=== PATIENT | female | born 1955 | race Caucasian/White ===

== ENCOUNTER 2023-09-21 06:30 | Inpatient (IN) | payer OTHER ==
[2023-09-12 14:51] LABS: BASOPHILS # (AUTO) 0.1 X10'3 (0-0.2); BASOPHILS % (AUTO) 0.9 % (0-1); EOSINOPHILS # (AUTO) 0.1 X10'3 (0-0.9); EOSINOPHILS % (AUTO) 2.7 % (0-6); LYMPHOCYTES # (AUTO) 1.6 X10'3 (1.1-4.8); LYMPHOCYTES % (AUTO) 30.1 % (21-51); MEAN CORPUSCULAR HEMOGLOBIN 31.2 PG (27.0-31.0); MEAN CORPUSCULAR HGB CONC 32.9 g/dL (33.0-36.5); MEAN CORPUSCULAR VOLUME 94.9 FL (78-98); MEAN PLATELET VOLUME 7.4 FL (7.4-10.4); MONOCYTES # (AUTO) 0.4 X10'3 (0-0.9); MONOCYTES % (AUTO) 7.1 % (2-12); NEUTROPHILS # (AUTO) 3.2 X10'3 (1.8-7.7); NEUTROPHILS % (AUTO) 59.2 % (42-75); PRE OP HEMATOCRIT 44.5 % (35.0-45.0); PRE OP HEMOGLOBIN 14.6 g/dL (12.0-16.0); PRE OP PLATELET COUNT 254 X10'3 (140-440); PRE OP WHITE BLOOD COUNT 5.4 10'3 (4.8-10.8); RED BLOOD COUNT 4.69 X10'6 (4.20-5.60); RED CELL DISTRIBUTION WIDTH 13.8 % (11.5-14.5)
[2023-09-12 15:08] LABS: PRE OP PROTIME 17.8 SECONDS (9.0-12.0)
[2023-09-12 15:10] LABS: PRE OP INR 1.7 INR
[2023-09-12 15:13] LABS: ALBUMIN 3.7 G/DL (3.4-5.0); ALBUMIN/GLOBULIN RATIO 0.9 (1.1-1.5); ALKALINE PHOSPHATASE 107 IU/L (46-116); BLOOD UREA NITROGEN 9 MG/DL (7-18); BUN/CREATININE RATIO 10.8 (10.0-20.0); CHLORIDE 105 MMOL/L (99-107); CREATININE 0.83 MG/DL (0.40-0.90); PRE OP ALT 32 U/L (30-65); PRE OP ANION GAP 10 (8-16); PRE OP AST 23 U/L (10-37); PRE OP BILIRUB, TOTAL 0.4 MG/DL (0.0-1.0); PRE OP GLUCOSE 155 MG/DL (70-104); PRE OP POTASSIUM 3.8 MMOL/L (3.4-5.1); PRE OP SODIUM 144 MMOL/L (135-145); TOTAL CARBON DIOXIDE 29.5 MMOL/L (24-32); TOTAL PROTEIN 7.6 G/DL (6.4-8.2); eGFR 69 ML/MIN
[~2023-09-21] VITALS: Ht 172.7 cm; Wt 104.3 kg
[2023-09-21] VITALS (18 sets, daily range): BP systolic 113–171; BP diastolic 67–97; PULSE 65–100; RESP 13–17; TEMP 98.1–98.7; O2SAT 91–100
[2023-09-21] MEDS: tranexamic acid inj. 1,000 MG in normal saline IV soln 100ML IV ONE (05:30)
[2023-09-21] MEDS: cefazolin 2gm/D5W 100mL 100 ML IV ONE (05:30)
[~2023-09-21 06:30] MED LIST: ESCI20TA36 PO; MULT-1085 PO; WARF4TAB69 PO
[2023-09-21] MEDS: vancomycin 1,500 MG in NS 300ml IV soln IV ONE (07:10)
[2023-09-21] MEDS: ringers solution, lacted 1,000 ML IV SCH ×2 (07:10→09:25)
[2023-09-21] MEDS: famotidine 20mg tablet PO ONE (07:11)
[2023-09-21 08:03] LABS: APTT 30 SECONDS (22-32); INR 1.4 INR; PROTHROMBIN TIME 14.4 SECONDS (9.0-12.0)
[2023-09-21] MEDS ORDERED: tetracaine 1% (10mg/ml) pres. free inj. ONE (08:20)
[2023-09-21] MEDS ORDERED: MIDAZolam 1mg/ml 10ml vial ONE ×2 (08:23→08:46)
[2023-09-21] MEDS ORDERED: fentaNYL/PF 50MCG/1 ML 2ML syringe ONE (08:23)
[2023-09-21] MEDS ORDERED: BUPIVAcaine/dex-water/PF 7.5 mg/ml 2ml ampul ONE (08:25)
[2023-09-21] MEDS ORDERED: propofol inj 20 ML IV ONE ×3 (08:56)
[2023-09-21] MEDS: vancomycin 1,000mg inj ONE (09:20)
[2023-09-21] MEDS: epiNEPHrine 1 mg/ml inj ONE (09:21)
[2023-09-21] MEDS: morphine 10mg/ml inj. ONE (09:23)
[2023-09-21] MEDS: ROPIVAcaine 0.5% (5mg/ml) 30ml vial ONE (09:24)
[2023-09-21] MEDS: ROPIVAcaine 0.2%/PF PUMP/bolus 545 ML ADDCANAL SCH (09:25)
[2023-09-21] MEDS ORDERED: hydrALAZINE 20mg/ml inj. IV PRN (09:25)
[2023-09-21] MEDS ORDERED: morphine 4 MG/ML inj SYRINge IV PRN (09:25)
[2023-09-21] MEDS ORDERED: labetalol 20mg/4ml (5mg/ml) syringe IV PRN (09:25)
[2023-09-21] MEDS ORDERED: morphine 2 MG/ML inj. syringe IV PRN (09:25)
[2023-09-21] MEDS ORDERED: fentaNYL/PF 50MCG/1 ML 2ML syringe IV PRN ×2 (09:25)
[2023-09-21] MEDS ORDERED: ondansetron/PF 4mg/2ml inj IV PRN ×2 (09:25→11:25)
[2023-09-21] MEDS ORDERED: ROPIVAcaine 0.5% (5mg/ml) 30ml vial ONE ×2 (10:38)
[2023-09-21] MEDS ORDERED: naloxone 0.4 mg/ml inj IV PRN (11:25)
[2023-09-21] MEDS ORDERED: acetaminophen 325mg tablet PO PRN (11:25)
[2023-09-21] MEDS ORDERED: diphenhydrAMINE 25mg capsule PO PRN ×2 (11:25)
[2023-09-21] MEDS ORDERED: bisacodyl 10mg suppository rectal RC PRN (11:25)
[2023-09-21] MEDS: gabapentin 300mg capsule PO SCH (13:34)
[2023-09-21] MEDS: acetaminophen 325mg tablet PO SCH (13:34)
[2023-09-21] MEDS: oxyCODONE IR 5mg (immed. release) tablet PO PRN (13:34)
[2023-09-21] MEDS: tranexamic acid inj. 1,000 MG in normal saline 100ml IV soln 90 ML IV ONE (14:30)
[2023-09-21] MEDS: HYDROmorphone 1 mg/ml syringe IV PRN (15:25)
[2023-09-21] MEDS: ceFAZolin/D5W- 1GM premix 50 ML IV SCH (17:41)
[2023-09-21] MEDS: sennosides 8.6mg tablet PO SCH (20:03)
[2023-09-21] MEDS: vancomycin/NS 1 GM ADD-VANTAGE 250 ML IV SCH (20:25)
[2023-09-22] VITALS (10 sets, daily range): BP systolic 130–167; BP diastolic 64–83; PULSE 86–98; RESP 14–21; TEMP 97.1–99.3; O2SAT 92–98
[2023-09-22] MEDS: ESCITALOPRAM 10 mg tablet 10 MG TABLET PO SCH (08:00)
[2023-09-22] MEDS: enoxaparin 40mg/0.4ml syringe SQ SCH (08:00)
[2023-09-22] MEDS ORDERED: non-formulary drug (Escitalopram Oxalate (Lexapro) 1 TAB) PO SCH (08:00)
[2023-09-22] MEDS: oxyCODONE IR 5mg (immed. release) tablet PO PRN (13:26)
[2023-09-22] MEDS: HYDROmorphone inj. 0.5 MG/0.5 ML DISP.SYRIN IV PRN (16:20)
[2023-09-22] MEDS: celeCOXIB 100mg capsule PO SCH (20:15)
[2023-09-22] MEDS: apixaban 5mg tablet PO SCH (20:16)
[2023-09-23 06:00] VITALS: BP 139/78; PULSE 80; RESP 13; TEMP 98.2; O2SAT 95
[2023-09-23] MEDS: magnesium hydroxide 30ml (MOM) UD suspension PO PRN (07:02)
[2023-09-23 08:00] VITALS: RESP 14; O2SAT 98
[2023-09-23 08:49] LABS: BASOPHILS % (AUTO) 0.3 % (0-1); EOSINOPHILS % (AUTO) 0.6 % (0-6); HEMATOCRIT 32.1 % (35.0-45.0); HEMOGLOBIN 10.9 g/dl (12.0-16.0); LYMPHOCYTES # (AUTO) 1.1 X10'3 (1.1-4.8); LYMPHOCYTES % (AUTO) 12.8 % (21-51); MEAN CORPUSCULAR HEMOGLOBIN 31.4 PG (27.0-31.0); MEAN CORPUSCULAR HGB CONC 33.8 g/dL (33.0-36.5); MEAN CORPUSCULAR VOLUME 92.7 FL (78-98); MEAN PLATELET VOLUME 8.2 FL (7.4-10.4); MONOCYTES # (AUTO) 1.3 X10'3 (0-0.9); MONOCYTES % (AUTO) 14.8 % (2-12); NEUTROPHILS # (AUTO) 6.1 X10'3 (1.8-7.7); NEUTROPHILS % (AUTO) 71.5 % (42-75); PLATELET COUNT 185 X10'3 (140-440); RED BLOOD COUNT 3.46 X10'6 (4.20-5.60); RED CELL DISTRIBUTION WIDTH 13.5 % (11.5-14.5); WHITE BLOOD COUNT 8.5 X10'3 (4.5-11.0)
[2023-09-23 09:23] LABS: CHLORIDE 105 MMOL/L (99-107); SODIUM 140 MMOL/L (135-145)
[2023-09-23] MEDS: ROPIVAcaine 0.2% (10 MG/5 ML) BOLUS INJECTION ADDCANAL PRN (09:35)
[2023-09-23 09:42] LABS: ALANINE AMINOTRANSFERASE 16 U/L (12-78); ALBUMIN 2.1 G/DL (3.4-5.0); ALBUMIN/GLOBULIN RATIO 0.5 (1.1-1.5); ALKALINE PHOSPHATASE 66 IU/L (46-116); ANION GAP 8 (8-16); ASPARTATE AMINO TRANSFERASE 14 U/L (10-37); BILIRUBIN,TOTAL 0.8 MG/DL (0.1-1.0); BLOOD UREA NITROGEN 7 MG/DL (7-18); BUN/CREATININE RATIO 12.1 (10.0-20.0); CALCIUM 8.4 MG/DL (8.5-10.1); CREATININE 0.58 MG/DL (0.40-0.90); GLUCOSE 110 MG/DL (70-104); TOTAL CARBON DIOXIDE 27.4 MMOL/L (24-32); eCRCL 95 ML/MIN; eGFR > 90 ML/MIN
[2023-09-23] MEDS ORDERED: gabapentin capsule PO (09:52)
[2023-09-23] MEDS ORDERED: APIX5TAB3 PO (09:52)
[2023-09-23] MEDS ORDERED: HYDR-3965 PO (09:52)
[2023-09-23 10:00] VITALS: BP 101/60; PULSE 96; RESP 16; TEMP 97.6; O2SAT 95
[2023-09-23] MEDS ORDERED: acetaminophen 325mg tablet PO PRN (11:25)
[2023-09-23 18:00] VITALS: BP 156/72; PULSE 94; RESP 18; TEMP 98.7; O2SAT 93
[2023-09-23 20:00] VITALS: RESP 18; O2SAT 93
[2023-09-23 22:48] VITALS: BP 107/63; PULSE 89; RESP 18; TEMP 97.3; O2SAT 100
[2023-09-24 06:30] VITALS: BP 94/64; PULSE 87; RESP 16; TEMP 97.7; O2SAT 95
[2023-09-24 06:46] LABS: BASOPHILS % (AUTO) 0.4 % (0-1); EOSINOPHILS # (AUTO) 0.1 X10'3 (0-0.9); EOSINOPHILS % (AUTO) 2.1 % (0-6); HEMATOCRIT 30.6 % (35.0-45.0); HEMOGLOBIN 10.3 g/dl (12.0-16.0); LYMPHOCYTES # (AUTO) 1.5 X10'3 (1.1-4.8); LYMPHOCYTES % (AUTO) 22.1 % (21-51); MEAN CORPUSCULAR HEMOGLOBIN 31.2 PG (27.0-31.0); MEAN CORPUSCULAR HGB CONC 33.5 g/dL (33.0-36.5); MEAN CORPUSCULAR VOLUME 93.2 FL (78-98); MEAN PLATELET VOLUME 8.5 FL (7.4-10.4); MONOCYTES # (AUTO) 0.9 X10'3 (0-0.9); MONOCYTES % (AUTO) 13.5 % (2-12); NEUTROPHILS # (AUTO) 4.3 X10'3 (1.8-7.7); NEUTROPHILS % (AUTO) 61.9 % (42-75); PLATELET COUNT 182 X10'3 (140-440); RED BLOOD COUNT 3.29 X10'6 (4.20-5.60); RED CELL DISTRIBUTION WIDTH 13.6 % (11.5-14.5); WHITE BLOOD COUNT 6.9 X10'3 (4.5-11.0)
[2023-09-24 06:57] LABS: ALANINE AMINOTRANSFERASE 36 U/L (12-78); ALBUMIN 2.2 G/DL (3.4-5.0); ALBUMIN/GLOBULIN RATIO 0.6 (1.1-1.5); ALKALINE PHOSPHATASE 76 IU/L (46-116); ANION GAP 5 (8-16); ASPARTATE AMINO TRANSFERASE 28 U/L (10-37); BILIRUBIN,TOTAL 0.5 MG/DL (0.1-1.0); BLOOD UREA NITROGEN 8 MG/DL (7-18); BUN/CREATININE RATIO 13.6 (10.0-20.0); CALCIUM 8.3 MG/DL (8.5-10.1); CHLORIDE 106 MMOL/L (99-107); CREATININE 0.59 MG/DL (0.40-0.90); GLUCOSE 93 MG/DL (70-104); POTASSIUM 4.2 MMOL/L (3.5-5.1); SODIUM 141 MMOL/L (135-145); TOTAL CARBON DIOXIDE 30.1 MMOL/L (24-32); TOTAL PROTEIN 5.8 G/DL (6.4-8.2); eCRCL 93 ML/MIN; eGFR > 90 ML/MIN
[2023-09-24 10:46] VITALS: BP 106/66; PULSE 99; RESP 20; TEMP 98; O2SAT 96
[2023-09-24 11:04] VITALS: RESP 16
[2023-09-24 14:12] VITALS: RESP 16
== END 2023-09-24 15:10 | disposition home health service (06) | DRG 470 ==
LOC: PAS IN 06:30 → ORTHO 4S 12:35
PROVIDERS: ADMIT Orthopaedic Surgery; ATTEND Orthopaedic Surgery
PROC: 0JH80WZ Insertion of Totally Implantable Vascular Access Device into Abdomen Subcutaneous Tissue and Fascia, Open Approach (ICD-10-PCS; 2023-09-21)
PROC: 3E0T3BZ Introduction of Anesthetic Agent into Peripheral Nerves and Plexi, Percutaneous Approach (ICD-10-PCS; 2023-09-21)
PROC: 3E0T33Z Introduction of Anti-inflammatory into Peripheral Nerves and Plexi, Percutaneous Approach (ICD-10-PCS; 2023-09-21)
PROC: 0SRC0J9 Replacement of Right Knee Joint with Synthetic Substitute, Cemented, Open Approach (ICD-10-PCS; principal; 2023-09-21 08:25)
DX: M17.11 Unilateral primary osteoarthritis, right knee (principal); D68.59 Other primary thrombophilia; E66.9 Obesity, unspecified; F32.A Depression, unspecified; I10 Essential (primary) hypertension; Z86.711 Personal history of pulmonary embolism; Z86.718 Personal history of other venous thrombosis and embolism; Z87.891 Personal history of nicotine dependence; Z79.01 Long term (current) use of anticoagulants; Z68.35 Body mass index [BMI] 35.0-35.9, adult; Z79.899 Other long term (current) drug therapy; Z90.49 Acquired absence of other specified parts of digestive tract
CPT/HCPCS: Z7506; Z7508; 36415; 73560; 80053; 82948; 85025; 85610; 85730; 87081; 97116; 97161; 97530; A4215; A4615; A6253; A6258; A6446; A6449; A7000; C1713; C1758; C1776; G0378; J0171; J0690; J1170; J2250; J2274; J2370; J2704; J2795; J3010; J3370; J3490; J7030; J7120